=== PATIENT | female | born 1955 ===

== ENCOUNTER → 2017-06-10 | Outpatient (REF) | payer BC ==
[2017-06-12 00:06] LABS: Lyme Disease IgG/IgM Antibodie <0.91 ISR (0.00-0.90); Lyme Disease IgM Ab Quantitati <0.80 index (0.00-0.79)
== END ==
LOC: M LAB REF 12:11
PROVIDERS: ATTEND Physician Assistant Medical
DX: L30.9 Dermatitis, unspecified (principal)